=== PATIENT | female | born 2000 | race Hispanic/Latino ===

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

== ENCOUNTER 2019-01-22 09:25 | Outpatient (CLI) | payer MEDICAID ==
--- NOTE | 2019-01-22 10:53 | ULT ---
OB ULTRASOUND: HISTORY: anatomy. Doctor was unable to obtain heart tones yesterday. FINDINGS: A single live intrauterine gestation is seen, with measurements corresponding to an estimated gestati onal age of 19 weeks 2 days and an MICHAEL of 06/16/2019. The estimated weight measures 300 g or 1 1 oz (97th percentile). The measurements are as follows: BPD: 4.28 cm (19 weeks 0 day) HC: 16.45 cm (19 weeks 1 day) AC: 14.15 cm (19 weeks 4 days) FL: 3.14 cm (19 weeks 5 days) heart rate measures 137 beats per minute. Placenta is anteriorly located without evidence of p lacenta previa. Amniotic fluid appear adequate. A three-vessel cord, cord insertion, kidneys, bladder, stomach, four-chamber heart, lateral stacey tricles, cerebellum, spine, lips/nose, and upper and lower extremities are visualized. The three-ves mayra cord is at the level of the bladder. No significant abnormalities are seen. IMPRESSION: Single live intrauterine of 19 weeks' 2 days' estimated gestational age and an estimated da te of delivery of 06/16/2019. POS: OFF
== END 2019-01-22 09:26 | disposition home or self-care (01) ==
LOC: SCSULT 09:25
PROVIDERS: ATTEND Nurse Practitioner
DX: O09.92 Supervision of high risk pregnancy, unspecified, second trimester (principal); Z87.51 Personal history of pre-term labor; Z3A.19 19 weeks gestation of pregnancy
CPT/HCPCS: 76805

== ENCOUNTER 2019-05-04 15:05 | Emergency (ER) | payer MEDICAID ==
[2019-05-04] MEDS ORDERED: Betamet Acet/Betamet Na Ph 30 MG/5 ML VIAL IM SCH (16:00)
== END 2019-05-04 16:31 | disposition home or self-care (01) ==
LOC: ER/OP 15:05
DX: Z29.8 Encounter for other specified prophylactic measures (principal)
CPT/HCPCS: 90471; 96372; J0702

== ENCOUNTER 2019-05-24 00:40 | Inpatient (IN) | payer OTHER ==
[2019-05-24 01:07] VITALS: BMI 27.6
[2019-05-24] MEDS ORDERED: Ondansetron PF 4 MG/2 ML Vial IVP PRN ×2 (01:14→02:04)
[2019-05-24] MEDS ORDERED: Promethazine HCl 25 MG/ML VIAL IM PRN (01:14)
[2019-05-24] MEDS ORDERED: hydrALAZINE 20 MG/ML VIAL SLOW IVP PRN ×2 (01:14→02:04)
[2019-05-24] MEDS ORDERED: Lidocaine 1% (PF) 30 ML VIAL SC PRN (01:14)
[2019-05-24] MEDS ORDERED: Acetaminophen 500 MG TAB PO PRN (01:14)
[2019-05-24] MEDS ORDERED: NS / Oxytocin 40 units/1000ml 1,000 ML IV PRN (01:14)
[2019-05-24] MEDS ORDERED: Lactated Ringer's 1,000 ML IV SCH (01:15)
[2019-05-24] MEDS ORDERED: Fentanyl 4 mcg/Bup 0.1% Cadd 100 ML ONE (01:21)
[2019-05-24 01:28] LABS: Hemoglobin 12.1 g/dL (12.0-16.0); Mean Corpuscular HGB CONC 34.7 g/dL (32.0-36.0); Mean Corpuscular Volume 89.2 fL (78.0-98.0); Mean Platelet Volume 8.4 fL (7.4-10.4); Platelet Count 196 thou/uL (130-400); RBC Distribution Width 13.4 % (11.5-14.5); Red Blood Cell (RBC) Count 3.92 mill/uL (4.00-5.20); White Blood Cell (WBC) Count 11.3 thou/uL (4.8-10.8)
[2019-05-24] MEDS ORDERED: Benzocaine-Menthol 82.5 ML CAN TOP PRN (02:04)
[2019-05-24] MEDS ORDERED: HYDROcodone/Acetaminophen 5/325 mg Tablet PO PRN (02:04)
[2019-05-24] MEDS ORDERED: Milk Of Magnesia 30 ML UDCUP PO PRN (02:04)
[2019-05-24] MEDS ORDERED: Bisacodyl 10 MG SUPP PR PRN (02:04)
[2019-05-24] MEDS ORDERED: Lanolin Ointment 7 GM TUBE TOP PRN (02:04)
[2019-05-24 02:08] LABS: HBSAg Index 0.21 S/CO (0-0.99); Hep B Surf Ag Non-Reactive S/CO (NonReactive)
[2019-05-24] MEDS ORDERED: NS / Oxytocin 40 units/1000ml 1,000 ML IV SCH (02:15)
[2019-05-24] MEDS: HYDROcodone/Acetaminophen 5/325 mg Tablet PO PRN ×3 (02:32→17:37)
--- NOTE | 2019-05-24 03:07 | DN ---
DATE OF PROCEDURE: 05/24/2019 ADMITTING DIAGNOSES: 1. A 18-year-old G2, P0-1-0-1, at 36 and 5, in active labor. 2. History of delivery at 34 weeks, was treated on [place] injections for her history. 3. Prematurity, status post betamethasone x2 injections for lung maturity. 4. Group B Streptococcus negative. POSTOPERATIVE DIAGNOSES: 1. A 18-year-old G2, P0-1-0-1, at 36 and 5, in active labor. 2. History of delivery at 34 weeks, was treated on [place] injections for her history. 3. Prematurity, status post betamethasone x2 injections for lung maturity. 4. Group B Streptococcus negative. 5. Precipitous delivery after spontaneous rupture of membranes with clear fluid. ANESTHESIA: None. ESTIMATED BLOOD LOSS: 15 mL. CLINICAL HISTORY: This patient is a 18-year-old, G2, P0-1-0-1, who presented to, originally [facility] for concern of regular contractions and water breaking. She had a ROM Plus that was negative and a category 1 tracing. The patient was adamant that she leave go to [facility] where she wanted to deliver because it was closer to her home. She was checked and noted to be 4 cm, 90% effaced, -2 station, which was consistent with where she had been for the last 3 weeks. The patient was discharged by private car with the understanding of the possible complications and went straight to [facility] where she was directly admitted. When she got up to labor and delivery, she ruptured her membranes with clear fluid and then felt the urge to push shortly thereafter. DETAILS OF THE PROCEDURE: With good maternal effort, she was able to push the vertex to crown in the ISHMAEL position. The head was delivered and nuchal cord was noted, the cord was reduced at the perineum, and then the anterior shoulder, followed by the posterior shoulder, followed by the remainder of the infant's body was delivered. The infant cried spontaneously. The cord was doubly clamped and cut by the father of the baby and the infant was placed on the maternal abdomen while being stimulated. The cord blood was obtained and then the placenta was delivered spontaneously intact with 3-vessel cord. Exploration of vagina, introitus, and cervix revealed no lacerations. The uterine fundus was massaged and was noted to be firm. The placenta was discarded and the patient was cleansed and de-draped and placed into the recovery position. She was able to recover with her infant. Again, the was a live born female with Apgars of 9 and 9 at 1 and 5 minutes respectively. There were no other issues surrounding this delivery. All needle, sponge, lap, and instrument counts were correct x2 at the end of the procedure. Job ID: [id number]
[2019-05-24] MEDS: Ibuprofen 800 MG TAB PO SCH ×3 (04:44→21:22)
[2019-05-24 05:18] LABS: Syphilis Antibody Nonreactive (Nonreactive); Syphilis Antibody Index 0.02 S/CO (<1.00 Non-Reactive)
[2019-05-24] MEDS: Ferrous Sulfate 325 MG TAB PO SCH ×2 (07:33→17:39)
[2019-05-24] MEDS: Prenatal Vitamin 1 TAB PO SCH (08:00)
[2019-05-24] MEDS: Docusate Calcium (SURFAK) 240 MG CAP PO SCH ×2 (08:00→21:22)
[2019-05-24] MEDS ORDERED: Adacel (T-DAP) 0.5 ML SYRINGE IM ONE (09:00)
[2019-05-24] MEDS ORDERED: Sodium Chloride 0.65% Nasal 44 ML BOT EA NARE PRN (20:47)
[2019-05-25] MEDS: Ibuprofen 800 MG TAB PO SCH ×2 (06:16→14:05)
[2019-05-25 08:29] VITALS: BP 109/59; TEMP 98.3
[2019-05-25] MEDS: Ferrous Sulfate 325 MG TAB PO SCH (08:29)
[2019-05-25] MEDS: Prenatal Vitamin 1 TAB PO SCH (09:13)
[2019-05-25] MEDS: Docusate Calcium (SURFAK) 240 MG CAP PO SCH (09:13)
== END 2019-05-25 17:00 | disposition home or self-care (01) | DRG 807 ==
LOC: L&D 00:40 → 3SW 04:08
PROVIDERS: ADMIT Obstetrics & Gynecology; ATTEND Obstetrics & Gynecology
PROC: 10E0XZZ Delivery of Products of Conception, External Approach (ICD-10-PCS; principal; 2019-05-24)
DX: O60.14X0 Preterm labor third trimester with preterm delivery third trimester, not applicable or unspecified (principal); Z37.0 Single live birth; O62.3 Precipitate labor; O69.81X0 Labor and delivery complicated by cord around neck, without compression, not applicable or unspecified; Z3A.36 36 weeks gestation of pregnancy
CPT/HCPCS: 36415; 85027; 86780; 86850; 86900; 86901; 87340